=== PATIENT | female | born 1990 ===

== ENCOUNTER 2022-03-12 08:45 | Outpatient (REF) | payer MEDICAID, SELFPAY ==
--- NOTE | 2022-03-12 08:55 | EMG_ITS ---
Right median and ulnar motor and sensory studies were performed. Right radial sensory study was performed and paraspinal muscles were tested with a needle. IMPRESSION: Mild right median neuropathy across carpal tunnel. MD QUENTIN Kulkarni/EMMA / [phone]
== END 2022-03-12 08:46 | disposition home or self-care (01) ==
LOC: HO.NEURO 08:45
PROVIDERS: PCP Internal Medicine; Visit Provider Emergency Medicine
DX: R20.2 Paresthesia of skin (principal)
CPT/HCPCS: 95886; 95909

== ENCOUNTER 2022-11-24 20:41 | Emergency (ER) | payer OTHER, MEDICAID, SELFPAY ==
[2022-11-24 20:44] VITALS: BP 122/85; PULSE 87; RESP 16; TEMP 36.7; O2SAT 99; BMI 21.9
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
[2022-11-24] MEDS: Ibuprofen 600 MG TABLET PO (21:59)
== END 2022-11-24 22:02 | disposition home or self-care (01) ==
PROVIDERS: Emergency Provider Emergency Medicine; PCP Internal Medicine
DX: S13.4XXA Sprain of ligaments of cervical spine, initial encounter (principal); V43.52XA Car driver injured in collision with other type car in traffic accident, initial encounter; Y93.89 Activity, other specified; Y92.414 Local residential or business street as the place of occurrence of the external cause; Y99.9 Unspecified external cause status
CPT/HCPCS: 99283

== ENCOUNTER 2023-02-02 11:51 | Outpatient (REF) | payer OTHER, MEDICAID, SELFPAY ==
[2023-02-05 09:08] LABS: TS Negative Control Passed; TS Panel A 0; TS Panel B 0; TS Positive Control Passed; TSpotTB Negative (Negative)
== END 2023-02-02 11:52 | disposition home or self-care (01) ==
LOC: HO.HHCL 11:51
PROVIDERS: Visit Provider Internal Medicine
DX: Z11.1 Encounter for screening for respiratory tuberculosis (principal)
CPT/HCPCS: 36415; 86481